=== PATIENT | female | born 1945 | race Two or more races ===

== ENCOUNTER 2018-12-28 19:20 | Emergency (ER) | payer OTHER ==
[~2018-12-28] VITALS: Ht 154.9 cm; Wt 68.0 kg
[~2018-12-28 19:20] MED LIST: CATAFLAM50 MG; DICLOFENAC SODI50 MG PO; FLEXERIL10 MG; FUROSEMIDE20 MG; NABUMETONE500 MG PO; PERCOCET 5/3251 TAB PO; PROPANOLOL PO; SYNTHROID100 MCG
== END 2018-12-28 22:20 | disposition home or self-care (01) ==
LOC: ER 19:20
DX: M75.82 Other shoulder lesions, left shoulder (principal); M62.838 Other muscle spasm; M54.2 Cervicalgia

== ENCOUNTER 2021-07-13 09:33 | Outpatient (CLI) | payer OTHER | END 2021-07-13 09:35 | disposition home or self-care (01) | LOC: LAB 09:33 | PROVIDERS: ATTEND Ophthalmology | DX: H35.343 Macular cyst, hole, or pseudohole, bilateral (principal) ==

== ENCOUNTER 2021-07-28 14:02 | Emergency (ER) | payer OTHER ==
[~2021-07-28] VITALS: Ht 157.5 cm; Wt 61.2 kg
[2021-07-28] MEDS ORDERED: HORIZANT600 MG PO (14:39)
[2021-07-28] MEDS ORDERED: TIVORBEX20 MG PO (14:40)
[2021-07-28] MEDS ORDERED: ADULT LOW DOSE81 M1 PO (14:41)
[2021-07-28] MEDS ORDERED: CLONAZEPAM0.5 M1 PO (14:42)
[2021-07-28] MEDS ORDERED: NORVASC5 MG PO (14:43)
[2021-07-28] MEDS ORDERED: LEVOXYL88 MCG PO (14:43)
[2021-07-28] MEDS ORDERED: CARAFATE1 GM PO (22:00)
[2021-07-28] MEDS ORDERED: PROTONIX20 MG PO (22:00)
[2021-07-28] MEDS ORDERED: ACETAMINOPHEN650 M2 PO (22:00)
[2021-07-28] MEDS ORDERED: PEPCID AC20 MG PO (22:00)
[2021-07-28] MEDS ORDERED: SURFAK240 M1 PO (22:00)
== END 2021-07-28 22:05 | disposition home or self-care (01) ==
LOC: ER 14:02
DX: K59.09 Other constipation (principal); R53.1 Weakness; R10.84 Generalized abdominal pain; Z03.818 Encounter for observation for suspected exposure to other biological agents ruled out

== ENCOUNTER 2021-08-05 11:07 | Emergency (ER) | payer OTHER ==
[~2021-08-05] VITALS: Ht 157.5 cm; Wt 62.6 kg
[~2021-08-05 11:07] MED LIST changes: +ACETAMINOPHEN650 M2 PO; +ADULT LOW DOSE81 M1 PO; +CARAFATE1 GM PO; +CLONAZEPAM0.5 M1 PO; +HORIZANT600 MG PO; +LEVOXYL88 MCG PO; +NORVASC5 MG PO; +PEPCID AC20 MG PO; +PROTONIX20 MG PO; +SURFAK240 M1 PO; +TIVORBEX20 MG PO
[2021-08-05] MEDS ORDERED: KRISTALOSE20 GM PO (17:08)
[2021-08-05] MEDS ORDERED: CITRATE OF MAG296 ML PO (17:08)
== END 2021-08-05 17:36 ==
LOC: ER 11:07
DX: K59.09 Other constipation (principal); R10.13 Epigastric pain; Z20.822 Contact with and (suspected) exposure to COVID-19

== ENCOUNTER 2021-08-11 00:13 | Emergency (ER) | payer OTHER ==
[~2021-08-11] VITALS: Ht 157.5 cm; Wt 61.7 kg
[~2021-08-11 00:13] MED LIST changes: +CITRATE OF MAG296 ML PO; +KRISTALOSE20 GM PO
[2021-08-11] MEDS ORDERED: ECOTRIN81 MG PO (00:44)
[2021-08-11] MEDS ORDERED: CLONAZEPAM0.5 MG PO (00:45)
[2021-08-11] MEDS ORDERED: AMLODIPINE BESYL5 MG PO (00:45)
[2021-08-11] MEDS ORDERED: INDERAL XL80 MG PO (00:45)
[2021-08-11] MEDS ORDERED: LEVOTHYROXINE88 MCG PO (00:46)
[2021-08-11] MEDS ORDERED: OMEPRAZOLE40 MG PO (00:46)
[2021-08-11] MEDS ORDERED: DOCUSATE CALCI240 MG PO (00:47)
[2021-08-11] MEDS ORDERED: CARAFATE1 GM/10 ML PO (07:56)
[2021-08-11] MEDS ORDERED: PEPCID40 MG PO (07:56)
[2021-08-11] MEDS ORDERED: PROTONIX40 MG PO (07:56)
== END 2021-08-11 09:26 ==
LOC: ER 00:13
DX: R10.13 Epigastric pain (principal)

== ENCOUNTER 2022-02-18 13:37 | Emergency (ER) | payer OTHER ==
[~2022-02-18] VITALS: Ht 152.4 cm; Wt 61.7 kg
[~2022-02-18 13:37] MED LIST changes: +AMLODIPINE BESYL5 MG PO; +CARAFATE1 GM/10 ML PO; +CLONAZEPAM0.5 MG PO; +DOCUSATE CALCI240 MG PO; +ECOTRIN81 MG PO; +INDERAL XL80 MG PO; +LEVOTHYROXINE88 MCG PO; +OMEPRAZOLE40 MG PO; +PEPCID40 MG PO; +PROTONIX40 MG PO
[2022-02-18] MEDS ORDERED: BENZONATATE200 M1 PO (17:31)
== END 2022-02-18 17:36 | disposition home or self-care (01) ==
LOC: ER 13:37
DX: R05.9 Cough, unspecified (principal); I10 Essential (primary) hypertension; Z20.822 Contact with and (suspected) exposure to COVID-19; Z88.8 Allergy status to other drugs, medicaments and biological substances

== ENCOUNTER 2022-03-02 15:34 | Emergency (ER) | payer OTHER ==
[~2022-03-02] VITALS: Ht 154.9 cm; Wt 61.2 kg
[~2022-03-02 15:34] MED LIST changes: +BENZONATATE200 M1 PO
== END 2022-03-02 18:13 | disposition home or self-care (01) ==
LOC: ER 15:34
DX: K52.89 Other specified noninfective gastroenteritis and colitis (principal); E03.9 Hypothyroidism, unspecified; I10 Essential (primary) hypertension

== ENCOUNTER 2022-03-28 11:43 | Outpatient (CLI) | payer OTHER | END 2022-03-28 11:44 | disposition home or self-care (01) | LOC: LAB 11:43 | PROVIDERS: ATTEND Radiology Diagnostic Radiology | DX: E66.3 Overweight (principal) ==

== ENCOUNTER 2022-04-20 08:59 | Outpatient (CLI) | payer OTHER | END 2022-04-20 09:05 | disposition home or self-care (01) | LOC: TOM 08:59 | PROVIDERS: ATTEND Internal Medicine | DX: K21.00 Gastro-esophageal reflux disease with esophagitis, without bleeding (principal); K21.9 Gastro-esophageal reflux disease without esophagitis | CPT/HCPCS: 74177; Q9965 ==

== ENCOUNTER 2022-05-23 09:56 | Emergency (ER) | payer OTHER ==
[~2022-05-23] VITALS: Ht 152.4 cm; Wt 57.2 kg
[2022-05-23] MEDS ORDERED: ACID REDUCER20 M1 PO (10:19)
== END 2022-05-23 10:58 | disposition home or self-care (01) ==
LOC: ER 09:56
DX: H20 Iridocyclitis (principal); M79.2 Neuralgia and neuritis, unspecified; H04.129 Dry eye syndrome of unspecified lacrimal gland

== ENCOUNTER 2023-03-05 14:12 | Emergency (ER) | payer OTHER ==
[~2023-03-05] VITALS: Ht 154.9 cm; Wt 57.2 kg
[~2023-03-05 14:12] MED LIST changes: +ACID REDUCER20 M1 PO
== END 2023-03-05 21:44 | disposition home or self-care (01) ==
LOC: ER 14:12
DX: R10.13 Epigastric pain (principal); Z88.8 Allergy status to other drugs, medicaments and biological substances

== ENCOUNTER → 2024-08-06 | Outpatient (CLI) | payer OTHER | END | disposition home or self-care (01) | LOC: RAD 13:14 | PROVIDERS: ATTEND Physical Medicine & Rehabilitation | DX: M25.512 Pain in left shoulder (principal) ==